=== PATIENT | female | born 1945 | race Caucasian/White ===

== ENCOUNTER → 2020-07-23 | Outpatient (CLI) | payer MEDICARE, OTHER ==
[~2020-07-23] MED LIST: ALDACTONE 25MG25 MG PO; ALLOPURINOL300 MG PO; AMLODIPINE BES2.5 MG PO; ATORVASTATIN CA10 MG PO; BENTYL 10MG CAP10 MG PO; CARVEDILOL6.25 MG PO; CELEXA20 MG PO; COLCRYS0.6 MG PO; COREG6.25 MG PO; COZAAR100 MG PO; ELIQUIS 5 MG TAB5 MG PO; ELIQUIS5 MG PO; FARXIGA10 MG PO; FELODIPINE ER10 MG PO; FERROUS SULFAT325 M2 PO; FUROSEMIDE20 MG PO; HUMALOG100 UNIT/2 SQ; IMDUR ER TAB 3030 MG PO; ISORDIL TAB 3030 MG PO; JARDIANCE10 MG PO; KETOROLAC TROME10 ML OP; KLONOPIN TAB 00.5 MG PO; KLONOPIN0.5 MG PO; LANTUS SOL100 UNIT/1 SQ; LANTUS100 UNIT/1 SQ; LASIX 40 MG TAB40 MG PO; LEVOFLOXACIN250 MG PO; LIPITOR TAB 1010 MG PO; LOSARTAN POTASS50 MG PO; NITROSTAT 0.40.4 MG SL; ONDANSETRON HCL4 MG PO; OXYCODON-ACETA1 EAC1 PO; PROTONIX 40 MG40 M1 PO; PROTONIX40 MG PO; SPIRONOLACTONE1 EACH PO; SPIRONOLACTONE25 MG PO; TYLENOL EXTRA500 MG PO; VITAMIN C500 M4 PO; ZYLOPRIM 300 M300 MG PO
[2020-07-24 13:13] LABS: CORTISOL 2.1 ug/dL (.)
[2020-07-30 18:11] LABS: METANEPHRINE, PL 12.3 pg/mL (0.0-88.0); NORMETANEPHRINE, PL 117.5 pg/mL (0.0-191.8)
== END ==
LOC: LAB 08:27
PROVIDERS: Physician Assistant Surgical
DX: E27.9 Disorder of adrenal gland, unspecified (principal)
CPT/HCPCS: 36415; 82088; 82533; 83835; 84244

== ENCOUNTER 2020-11-19 12:15 | Observation (INO) | payer MEDICARE ==
[~2020-11-19] VITALS: Ht 162.6 cm; Wt 85.7 kg
[~2020-11-19 12:15] MED LIST changes: -FARXIGA10 MG PO; -KETOROLAC TROME10 ML OP; -ONDANSETRON HCL4 MG PO
[2020-11-19 15:01] LABS: RED BLOOD COUNT 2.17 M/UL (4.00-5.10); WHITE BLOOD COUNT 11.1 K/UL (4.5-11.0)
[2020-11-19 15:06] LABS: HEMOGLOBIN 6.1 gm/dl (12.3-15.3)
[2020-11-19] MEDS ORDERED: FARXIGA10 MG PO (23:10)
[2020-11-19] MEDS ORDERED: ONDANSETRON HCL4 MG PO (23:11)
[2020-11-19] MEDS ORDERED: KETOROLAC TROME10 ML OP (23:11)
[2020-11-20 07:03] LABS: HEMOGLOBIN 7.3 gm/dl (12.3-15.3); RED BLOOD COUNT 2.53 M/UL (4.00-5.10); WHITE BLOOD COUNT 9.3 K/UL (4.5-11.0)
[2020-11-20 19:42] LABS: HEMOGLOBIN 8.6 gm/dl (12.3-15.3)
[2020-11-21 03:45] LABS: HEMOGLOBIN 8.4 gm/dl (12.3-15.3); WHITE BLOOD COUNT 9.3 K/UL (4.5-11.0)
[2020-11-21 03:46] LABS: RED BLOOD COUNT 2.92 M/UL (4.00-5.10)
== END 2020-11-21 14:45 | disposition home or self-care (01) ==
LOC: ER1 12:15 → M/S 18:25 → CDU 18:25 → M/S 21:57
PROVIDERS: Emergency Medicine; ADMIT Internal Medicine
DX: D64.9 Anemia, unspecified (principal); N17.9 Acute kidney failure, unspecified; K52.9 Noninfective gastroenteritis and colitis, unspecified; K92.2 Gastrointestinal hemorrhage, unspecified; E11.9 Type 2 diabetes mellitus without complications; I10 Essential (primary) hypertension; E87.1 Hypo-osmolality and hyponatremia; I48.91 Unspecified atrial fibrillation; E83.51 Hypocalcemia; R16.1 Splenomegaly, not elsewhere classified; Z20.822 Contact with and (suspected) exposure to COVID-19; Z91.041 Radiographic dye allergy status; Z79.4 Long term (current) use of insulin; Z79.899 Other long term (current) drug therapy
CPT/HCPCS: 36415; 36430; 80053; 82270; 82550; 82553; 82962; 83615; 84484; 85014; 85018; 85025; 85610; 85730; 86850; 86900; 86901; 86920; 96374; 96376; 99285; G0378; J2543; J7030; P9016; U0002

== ENCOUNTER → 2021-01-27 | Outpatient (CLI) | payer OTHER ==
[~2021-01-27] MED LIST changes: +FARXIGA10 MG PO; +KETOROLAC TROME10 ML OP; +ONDANSETRON HCL4 MG PO
== END ==
LOC: KOH-I 13:53
DX: S89.91XA Unspecified injury of right lower leg, initial encounter (principal); W19.XXXA Unspecified fall, initial encounter; D61.818 Other pancytopenia; D64.9 Anemia, unspecified; K90.9 Intestinal malabsorption, unspecified; R16.1 Splenomegaly, not elsewhere classified; Z96.651 Presence of right artificial knee joint; M25.461 Effusion, right knee
CPT/HCPCS: 73564; 73590

== ENCOUNTER → 2021-03-02 | Outpatient (CLI) | payer OTHER | LOC: KOH-I 15:30 | DX: D61.818 Other pancytopenia (principal); D64.9 Anemia, unspecified; K90.9 Intestinal malabsorption, unspecified; R16.1 Splenomegaly, not elsewhere classified | CPT/HCPCS: 93971 ==

== ENCOUNTER 2021-03-29 16:20 | Emergency (ER) | payer OTHER ==
[2021-03-29 18:04] LABS: HEMOGLOBIN 9.3 gm/dl (12.3-15.3); RED BLOOD COUNT 3.14 M/UL (4.00-5.10); WHITE BLOOD COUNT 9.1 K/UL (4.5-11.0)
== END 2021-03-29 19:08 | disposition home or self-care (01) ==
LOC: ER1 16:20
PROVIDERS: Student in an Organized Health Care Education/Training Program
DX: M25.512 Pain in left shoulder (principal); E11.9 Type 2 diabetes mellitus without complications; I10 Essential (primary) hypertension
CPT/HCPCS: 71045; 73030; 80053; 82550; 82553; 83874; 84484; 85025; 96374; 96376; 99284; J2270

== ENCOUNTER → 2021-04-14 | Outpatient (CLI) | payer OTHER | LOC: KOH-I 10:01 | DX: M25.512 Pain in left shoulder (principal); E04.1 Nontoxic single thyroid nodule | CPT/HCPCS: 73200 ==

== ENCOUNTER 2021-05-09 08:29 | Inpatient (IN) | payer MEDICARE ==
[~2021-05-09] VITALS: Ht 162.6 cm; Wt 99.3 kg
[~2021-05-09 08:29] MED LIST changes: -AMLODIPINE BES2.5 MG PO; +AMLODIPINE BESYL5 MG PO; +CARVEDILOL25 MG PO; -CARVEDILOL6.25 MG PO
[2021-05-09 09:40] LABS: HEMOGLOBIN 9.1 gm/dl (12.3-15.3); RED BLOOD COUNT 3.01 M/UL (4.00-5.10)
[2021-05-09 10:10] LABS: BUN/CREATININE RATIO 21 (0-10)
[2021-05-09] MEDS ORDERED: CATAPRES 0.1MG0.1 MG PO (13:27)
[2021-05-09] MEDS ORDERED: BUMETANIDE2 MG PO (13:27)
[2021-05-09] MEDS ORDERED: FOLIC ACID 1 MG1 MG PO (13:29)
[2021-05-10 06:52] LABS: HEMOGLOBIN 9.3 gm/dl (12.3-15.3); RED BLOOD COUNT 3.09 M/UL (4.00-5.10); WHITE BLOOD COUNT 10.2 K/UL (4.5-11.0)
[2021-05-11 07:24] LABS: HEMOGLOBIN 9.1 gm/dl (12.3-15.3); RED BLOOD COUNT 3.07 M/UL (4.00-5.10); WHITE BLOOD COUNT 9.7 K/UL (4.5-11.0)
[2021-05-11 20:47] LABS: BORDETELLA PARAPERTUSSIS Not Detected (Not Detectd); BORDETELLA PERTUSSIS Not Detected (Not Detectd); CHLAMYDIA PNEUMONIAE Not Detected (Not Detectd); CORONAVIRUS HKU1 Not Detected (Not Detectd); CORONAVIRUS NL63 Not Detected (Not Detectd); CORONAVIRUS OC43 Not Detected (Not Detectd); CORONOAVIRUS 229E Not Detected (Not Detectd); HUMAN METAPNEUMOVIRUS Not Detected (Not Detectd); HUMAN RHINOVIRUS/ENTEROVIRUS Not Detected (Not Detectd); INFLUENZA A Not Detected (Not Detectd); INFLUENZA B Not Detected (Not Detectd); MYCOPLASMA PNEUMONIAE Not Detected (Not Detectd); PARAINFLUENZA VIRUS 1 Not Detected (Not Detectd); PARAINFLUENZA VIRUS 2 Not Detected (Not Detectd); PARAINFLUENZA VIRUS 3 Not Detected (Not Detectd); PARAINFLUENZA VIRUS 4 Not Detected (Not Detectd); RESPIRATORY SYNCYTIAL VIRUS Not Detected (Not Detectd)
[2021-05-11 21:56] LABS: SARS-CoV-2 NOT DETECTED (Not Detectd)
[2021-05-11 22:23] LABS: ACINETOBACTER BAUMANNII Not Detected (Negative); CANDIDA ALBICANS Not Detected (Negative); CANDIDA KRUSEI Not Detected (Negative); CANDIDA TROPICALIS Not Detected (Negative); ESCHERICHIA COLI Not Detected (Negative); HAEMOPHILUS INFLUENZAE Not Detected (Negative); KLEBSIELLA OXYTOCA Not Detected (Negative); KLEBSIELLA PNEUMONIAE Not Detected (Negative); KPC-CARBAPENEM-RESISTANCE GENE Not Detected (Negative); PROTEUS Not Detected (Negative); PSEUDOMONAS AERUGINOSA Not Detected (Negative); SERRATIA MARCESANS Not Detected (Negative); STAPHYLOCOCCUS Not Detected (Negative); STAPHYLOCOCCUS AUREUS Not Detected (Negative); STREP AGALACTIAE (GROUP B) Not Detected (Negative); STREP PYOGENES (GROUP A) Not Detected (Negative); STREPTOCOCCUS Not Detected (Negative); mecA (METHICILLIN RESIST GENE Not Detected (Negative); vanA/B (VANCOMYCIN RESIST GENE Not Detected (Negative)
[2021-05-11 23:36] LABS: ENTEROCOCCUS DETECTED (Negative)
[2021-05-12 06:16] LABS: HEMOGLOBIN 8.3 gm/dl (12.3-15.3)
[2021-05-12 06:44] LABS: RED BLOOD COUNT 2.75 M/UL (4.00-5.10); WHITE BLOOD COUNT 5.3 K/UL (4.5-11.0)
[2021-05-12] MEDS ORDERED: HAIR VITAMIN1 EACH PO (09:04)
[2021-05-12 10:14] LABS: HBSAG SCREEN Negative (Negative); HEP B CORE AB, TOT Negative (Negative); HEP C VIRUS AB 0.1 (0.0-0.9)
[2021-05-12 11:14] LABS: ANTISTREPTOLYSIN O AB 94.3 IU/mL (0.0-200.0); COMPLEMENT C3, SERUM 83 mg/dL (82-167); COMPLEMENT C4, SERUM 15 mg/dL (12-38)
[2021-05-12 13:09] LABS: ANTI-DSDNA ANTIBODIES 1 IU/mL (0-9)
[2021-05-12 16:11] LABS: A/G RATIO 0.9 (0.7-1.7); ALBUMIN 2.8 g/dL (2.9-4.4); ALPHA-1-GLOBULIN 0.4 g/dL (0.0-0.4); ALPHA-2-GLOBULIN 0.6 g/dL (0.4-1.0); BETA GLOBULIN 0.7 g/dL (0.7-1.3); GAMMA GLOBULIN 1.6 g/dL (0.4-1.8); GLOBULIN, TOTAL 3.3 g/dL (2.2-3.9); IMMUNOGLOBULIN A, QN, SERUM 255 mg/dL (64-422); IMMUNOGLOBULIN G, QN, SERUM 1468 mg/dL (586-1602); IMMUNOGLOBULIN M, QN, SERUM 280 mg/dL (26-217); M-SPIKE Not Observed g/dL (Not Observed); PROTEIN, TOTAL, SERUM 6.1 g/dL (6.0-8.5)
[2021-05-12 17:11] LABS: ATYPICAL PANCA <1:20 titer (Neg:<1:20); CYTOPLASMIC (C-ANCA) <1:20 titer (Neg:<1:20); PERINUCLEAR (P-ANCA) <1:20 titer (Neg:<1:20)
[2021-05-13 07:09] LABS: HEMOGLOBIN 7.9 gm/dl (12.3-15.3); RED BLOOD COUNT 2.6 M/UL (4.00-5.10)
[2021-05-15 07:23] LABS: HEMOGLOBIN 7.2 gm/dl (12.3-15.3); RED BLOOD COUNT 2.4 M/UL (4.00-5.10); WHITE BLOOD COUNT 4.5 K/UL (4.5-11.0)
[2021-05-16 06:41] LABS: HEMOGLOBIN 7.8 gm/dl (12.3-15.3); RED BLOOD COUNT 2.61 M/UL (4.00-5.10); WHITE BLOOD COUNT 5.1 K/UL (4.5-11.0)
[2021-05-16] MEDS ORDERED: LANTUS SOL100 UNIT/1 SQ (15:45)
[2021-05-16] MEDS ORDERED: AUGMENTIN 500-500 MG PO (15:46)
== END 2021-05-16 17:35 | disposition home or self-care (01) | DRG 291 ==
LOC: ER1 08:29 → CDU 10:27 → M/S 10:27
PROVIDERS: Internal Medicine Infectious Disease; Internal Medicine Nephrology; Nurse Practitioner; Physician Assistant; Physician Assistant Medical; ADMIT Internal Medicine
DX: I13.0 Hypertensive heart and chronic kidney disease with heart failure and stage 1 through stage 4 chronic kidney disease, or unspecified chronic kidney disease (principal); I50.23 Acute on chronic systolic (congestive) heart failure; A41.59 Other Gram-negative sepsis; N17.9 Acute kidney failure, unspecified; E44.0 Moderate protein-calorie malnutrition; Z20.822 Contact with and (suspected) exposure to COVID-19; I44.7 Left bundle-branch block, unspecified; N18.30 Chronic kidney disease, stage 3 unspecified; I25.10 Atherosclerotic heart disease of native coronary artery without angina pectoris; E11.22 Type 2 diabetes mellitus with diabetic chronic kidney disease; E78.5 Hyperlipidemia, unspecified; I42.8 Other cardiomyopathies; D50.9 Iron deficiency anemia, unspecified; K22.70 Barrett's esophagus without dysplasia; B95.2 Enterococcus as the cause of diseases classified elsewhere; K21.9 Gastro-esophageal reflux disease without esophagitis; M10.9 Gout, unspecified; Z96.1 Presence of intraocular lens; E88.09 Other disorders of plasma-protein metabolism, not elsewhere classified; N05.9 Unspecified nephritic syndrome with unspecified morphologic changes; I48.0 Paroxysmal atrial fibrillation; Z95.810 Presence of automatic (implantable) cardiac defibrillator; Z90.710 Acquired absence of both cervix and uterus; Z83.3 Family history of diabetes mellitus; Z82.49 Family history of ischemic heart disease and other diseases of the circulatory system; Z98.41 Cataract extraction status, right eye; Z98.42 Cataract extraction status, left eye; Z79.82 Long term (current) use of aspirin; Z79.899 Other long term (current) drug therapy; Z68.37 Body mass index [BMI] 37.0-37.9, adult; Z79.4 Long term (current) use of insulin
CPT/HCPCS: ECHO; 36415; 71045; 71046; 76705; 80048; 80053; 80202; 81001; 82550; 82553; 82570; 82728; 82784; 82962; 83036; 83520; 83540; 83735; 83874; 83880; 83883; 84155; 84156; 84165; 84484; 85025; 85027; 85652; 86038; 86060; 86140; 86160; 86162; 86225; 86256; 86334; 86704; 86706; 86708; 86803; 87040; 87077; 87086; 87150; 87186; 87340; 87633; 93005; 93306; 96372; 96374; 96375; 96376; 99285; G0378; J0295; J1650; J1756; J1940; J2185; J3370; J3475; J7050; P9047; U0002

== ENCOUNTER 2021-06-01 08:29 | Inpatient (IN) | payer MEDICARE ==
[~2021-06-01] VITALS: Ht 170.2 cm; Wt 99.8 kg
[~2021-06-01 08:29] MED LIST changes: +AUGMENTIN 500-500 MG PO; +CATAPRES 0.1MG0.1 MG PO; +FOLIC ACID 1 MG1 MG PO; +HAIR VITAMIN1 EACH PO; -KLONOPIN0.5 MG PO; -OXYCODON-ACETA1 EAC1 PO
[2021-06-01] MEDS ORDERED: KLONOPIN0.5 MG PO (08:56)
[2021-06-01] MEDS ORDERED: OXYCODON-ACETA1 EAC1 PO (09:27)
[2021-06-01 09:32] LABS: HEMOGLOBIN 8.8 gm/dl (12.3-15.3); RED BLOOD COUNT 2.87 M/UL (4.00-5.10)
[2021-06-01] MEDS ORDERED: BUMETANIDE2 MG PO (13:27)
[2021-06-01] MEDS ORDERED: EFFEXOR XR75 MG PO (14:27)
[2021-06-02 08:16] LABS: HEMOGLOBIN 7.4 gm/dl (12.3-15.3)
[2021-06-02 08:19] LABS: RED BLOOD COUNT 2.42 M/UL (4.00-5.10); WHITE BLOOD COUNT 6.4 K/UL (4.5-11.0)
[2021-06-03 04:56] LABS: HEMOGLOBIN 7.9 gm/dl (12.3-15.3); RED BLOOD COUNT 2.54 M/UL (4.00-5.10)
[2021-06-04 04:39] LABS: RED BLOOD COUNT 2.18 M/UL (4.00-5.10); WHITE BLOOD COUNT 4.1 K/UL (4.5-11.0)
[2021-06-04 04:40] LABS: HEMOGLOBIN 6.8 gm/dl (12.3-15.3)
[2021-06-04] MEDS ORDERED: PROTONIX IV40 MG IVP (11:22)
[2021-06-04] MEDS ORDERED: HYDRALAZINE HCL50 MG PO (11:22)
[2021-06-04] MEDS ORDERED: CLONIDINE1 EAC2 TOP (11:34)
[2021-06-04 13:58] LABS: HEMOGLOBIN 8.3 gm/dl (12.3-15.3)
[2021-06-06 10:11] LABS: HBSAG SCREEN Negative (Negative); HEP A AB, IGM Negative (Negative); HEP B CORE AB, IGM Negative (Negative); HEP C VIRUS AB <0.1 (0.0-0.9)
[2021-06-07 17:07] LABS: HEPARIN INDUCED PLATELET AB 0.125 OD (0.000-0.400)
== END 2021-06-04 15:44 | disposition short-term general hospital (02) | DRG 291 ==
LOC: ER1 08:29 → CDU 12:30 → PROG CARE 12:30
PROVIDERS: Family Medicine; Internal Medicine; Internal Medicine Nephrology; Physician Assistant; ADMIT Internal Medicine
PROC: 30233N1 Transfusion of Nonautologous Red Blood Cells into Peripheral Vein, Percutaneous Approach (ICD-10-PCS; principal; 2021-06-04)
DX: I13.0 Hypertensive heart and chronic kidney disease with heart failure and stage 1 through stage 4 chronic kidney disease, or unspecified chronic kidney disease (principal); I50.33 Acute on chronic diastolic (congestive) heart failure; G93.41 Metabolic encephalopathy; K76.7 Hepatorenal syndrome; N17.9 Acute kidney failure, unspecified; R18.8 Other ascites; N18.32 Chronic kidney disease, stage 3b; E11.22 Type 2 diabetes mellitus with diabetic chronic kidney disease; D63.1 Anemia in chronic kidney disease; E66.01 Morbid (severe) obesity due to excess calories; E04.1 Nontoxic single thyroid nodule; I16.0 Hypertensive urgency; I42.9 Cardiomyopathy, unspecified; Z20.822 Contact with and (suspected) exposure to COVID-19; I44.7 Left bundle-branch block, unspecified; I42.8 Other cardiomyopathies; I42.0 Dilated cardiomyopathy; K21.9 Gastro-esophageal reflux disease without esophagitis; E78.5 Hyperlipidemia, unspecified; K74.60 Unspecified cirrhosis of liver; R91.1 Solitary pulmonary nodule; E86.0 Dehydration; Z90.710 Acquired absence of both cervix and uterus; Z82.49 Family history of ischemic heart disease and other diseases of the circulatory system; Z79.01 Long term (current) use of anticoagulants; Z83.3 Family history of diabetes mellitus; Z98.890 Other specified postprocedural states; Z91.041 Radiographic dye allergy status; Z98.49 Cataract extraction status, unspecified eye
CPT/HCPCS: 36415; 36430; 36600; 51702; 70450; 71045; 71250; 80053; 80069; 80074; 81001; 82140; 82272; 82550; 82553; 82728; 82803; 82962; 83540; 83550; 83605; 83690; 83735; 83874; 83880; 84132; 84439; 84443; 84484; 85014; 85018; 85025; 85027; 85610; 86850; 86900; 86901; 86920; 87040; 87086; 90935; 92507; 92526; 92610; 93005; 96374; 96375; 99285; C1752; C9113; J0360; J0696; J1205; J1644; J1940; J2354; J2405; J7030; P9016; P9047; U0002

== ENCOUNTER 2021-06-15 11:33 | Emergency (ER) | payer MEDICARE ==
[~2021-06-15 11:33] MED LIST changes: +BUMETANIDE2 MG PO; +CLONIDINE1 EAC2 TOP; +EFFEXOR XR75 MG PO; +HYDRALAZINE HCL50 MG PO; +KLONOPIN0.5 MG PO; +OXYCODON-ACETA1 EAC1 PO; +PROTONIX IV40 MG IVP
[2021-06-15 12:43] LABS: HEMOGLOBIN 9.9 gm/dl (12.3-15.3); RED BLOOD COUNT 3.12 M/UL (4.00-5.10); WHITE BLOOD COUNT 3.1 K/UL (4.5-11.0)
[2021-06-15 13:12] LABS: BUN/CREATININE RATIO 8 (0-10)
== END 2021-06-15 16:33 | disposition home or self-care (01) ==
LOC: ER1 11:33
PROVIDERS: Student in an Organized Health Care Education/Training Program
DX: E11.649 Type 2 diabetes mellitus with hypoglycemia without coma (principal); I48.91 Unspecified atrial fibrillation; K21.9 Gastro-esophageal reflux disease without esophagitis; Z20.822 Contact with and (suspected) exposure to COVID-19; Z91.041 Radiographic dye allergy status; Z79.4 Long term (current) use of insulin
CPT/HCPCS: 70450; 71045; 80053; 81001; 82550; 82553; 82962; 83605; 83874; 84484; 85025; 87040; 87086; 99285; U0002

== ENCOUNTER 2021-09-08 07:25 | Emergency (ER) | payer MEDICARE | END 2021-09-08 11:55 | disposition home or self-care (01) | LOC: ER1 07:25 | DX: S70.01XA Contusion of right hip, initial encounter (principal); S80.01XA Contusion of right knee, initial encounter; W19.XXXA Unspecified fall, initial encounter; Y92.009 Unspecified place in unspecified non-institutional (private) residence as the place of occurrence of the external cause | CPT/HCPCS: 73502; 73562; 99283 ==

== ENCOUNTER 2021-09-15 16:23 | Emergency (ER) | payer OTHER | END 2021-09-15 21:44 | disposition home or self-care (01) | LOC: ER1 16:23 | DX: M25.551 Pain in right hip (principal); E11.9 Type 2 diabetes mellitus without complications; I13.0 Hypertensive heart and chronic kidney disease with heart failure and stage 1 through stage 4 chronic kidney disease, or unspecified chronic kidney disease; I50.9 Heart failure, unspecified; W19.XXXA Unspecified fall, initial encounter | CPT/HCPCS: 72192; 73502; 96372; 99284; J2270; J2550 ==